=== PATIENT | female | born 1995 | race Caucasian/White ===

== ENCOUNTER 2017-03-03 14:13 | Inpatient (IN) | payer BC ==
[2017-03-03] MEDS ORDERED: Sodium Chloride 0.9% 10 ML Syringe FLUSH PRN (16:51)
[2017-03-03] MEDS ORDERED: Misoprostol 100 MCG Tab VAG PRN (16:51)
[2017-03-03] MEDS ORDERED: Nalbuphine 20 MG/1 ML Amp IVPUSH PRN (16:51)
[2017-03-03] MEDS ORDERED: Zolpidem 5 MG Tab PO PRN (16:51)
[2017-03-03] MEDS ORDERED: Ondansetron 4 MG/2 ML SDV IVPUSH PRN (16:51)
--- NOTE | 2017-03-03 16:55 | PCM.LDHP ---
L&D History of Present Illness - General Date of Service: 03/03/17 Admit Problem/Dx: Patient Status Order with Admit Dx/Problem 03/03/17 14:24 Patient Status [ADT] Routine 03/03/17 16:52 Patient Status [ADT] Routine Admission Diagnosis/Problem Admission Diagnosis/Problem Normal Source of Information: Patient History Limitations: Reports: No Limitations - History of Present Illness Introduction:: Patient is a 21 y/o at 38 4/7 wks who presents to L&D for serial BP's and labs. The last few clinic appointments has had BP's that have been high normal. States last night she had intermittent symptoms of blurred vision . Denies headaches or vision changes. Baby moving well. 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 Para: 0 Endocrine/Metabolic History: Reports: Obesity/BMI 30+ Social & Family History - Family History Family Medical History: Noncontributory - Tobacco Use Smoking Status *Q: Never Smoker - Alcohol Use Alcohol Use History: No - Recreational Drug Use Recreational Drug Use: No H&P Review of Systems - Review of Systems: Review Of Systems: See Below General: Reports: No Symptoms HEENT: Reports: Visual Changes Pulmonary: Reports: No Symptoms Cardiovascular: Reports: No Symptoms Gastrointestinal: Reports: No Symptoms Genitourinary: Reports: No Symptoms Musculoskeletal: Reports: No Symptoms Skin: Reports: No Symptoms Psychiatric: Reports: No Symptoms L&D Exam - Exam Exam: See Below - Vital Signs Vital Signs: Last Vital Signs Temp 37.1 C 03/03/17 14:30 Pulse 86 03/03/17 14:30 Resp 16 03/03/17 14:30 BP 138/88 03/03/17 14:30 Pulse Ox 98 03/03/17 14:30 Weight: 97.976 kg - OB Specific Contraction Intensity: Mild Movement: Active Heart Tones: Present Heart Tones per Min: 145 Heart Rate (FHR) Variability: Moderate (6-25 bmp) Presentation: Vertex - Blake Score Blake Score Cervix Position: Midposition Blake Score Consistency: Medium Blake Score Effacement: 0-30% Blake Score Dilation: Closed Blake Score Infant's Station: -3 Blake Score Total: 2 - Exam General: Alert, Oriented, Cooperative Lungs: Clear to Auscultation, Normal Respiratory Effort Cardiovascular: Regular Rate, Regular Rhythm GI/Abdominal Exam: Soft, Non-Tender Genitourinary: Normal external exam Extremities: Normal Inspection, Pedal Edema Skin: Warm, Dry, Intact - Patient Data Lab Results Last 24 hrs: Laboratory Results - last 24 hr 03/03/17 03/03/17 Range/Units 14:43 14:43 WBC 12.32 H (3.98-10.04) K/mm3 RBC 4.39 (3.98-5.22) M/mm3 Hgb 12.5 (11.2-15.7) gm/L Hct 38.3 (34.1-44.9) % MCV 87.2 (79.4-94.8) fl MCH 28.5 (25.6-32.2) pg MCHC 32.6 (32.2-35.5) g/dl RDW Std Deviation 45.1 (36.4-46.3) fL Plt Count 230 (182-369) K/mm3 MPV 11.1 (9.4-12.3) fl Creatinine 0.7 (0.55-1.02) mg/dL Est Cr Clr Drug Dosing 111.62 mL/min Estimated GFR (MDRD) > 60 (>60) mL/min AST 16 (15-37) U/L ALT 15 (14-59) U/L Result Diagrams: 03/03/17 14:43 03/03/17 14:43 - Problem List (1) 38 weeks gestation of SNOMED Code(s): 42544211 ICD Code: Z3A.38 - 38 WEEKS GESTATION OF Status: Acute Current Visit: Yes (2) Preeclampsia SNOMED Code(s): 166003267 ICD Code: O14.90 - UNSPECIFIED PRE-ECLAMPSIA, UNSPECIFIED TRIMESTER Status : Acute Current Visit: Yes Qualifiers: Trimester: third trimester Qualified Code(s): O14.93 - Unspecified pre- eclampsia, third trimester Problem List Initiated/Reviewed/Updated: Yes Orders Last 24hrs: Active Orders 24 hr Category Date Time Status Patient Status [ADT] Routine ADT 03/03/17 14:24 Active Patient Status [ADT] Routine ADT 03/03/17 16:52 Ordered Activity as Tolerated [RC] PFP Care 03/03/17 16:51 Ordered Communication Order [RC] ASDIRECTED Care 03/03/17 16:51 Ordered Communication Order [RC] ASDIRECTED Care 03/03/17 16:51 Ordered Communication Order [RC] ASDIRECTED Care 03/03/17 16:51 Ordered Communication Order [RC] ASDIRECTED Care 03/03/17 16:51 Ordered Heart Tones [RC] ASDIRECTED Care 03/03/17 16:51 Ordered Monitoring [RC] INTERMITTENT Care 03/03/17 16:51 Ordered Non Stress Test [RC] PER UNIT ROUTINE Care 03/03/17 14:24 Active Notify Provider [RC] ASDIRECTED Care 03/03/17 16:51 Ordered Notify Provider [RC] PFP Care 03/03/17 16:51 Ordered Notify Provider [RC] PRN Care 03/03/17 16:51 Ordered Peripheral IV Care [RC] . DIRECTED Care 03/03/17 16:51 Ordered Up ad Jennifer [RC] ASDIRECTED Care 03/03/17 16:52 Ordered Vaginal Exam [RC] ASDIRECTED Care 03/03/17 16:51 Ordered Vital Signs [RC] ASDIRECTED Care 03/03/17 16:51 Ordered Vital Signs [RC] PER UNIT ROUTINE Care 03/03/17 14:24 Active Vital Signs [RC] PER UNIT ROUTINE Care 03/03/17 16:51 Ordered Regular Diet [DIET] Diet 03/03/17 Dinner Ordered TYPE AND SCREEN [BBK] Routine Lab 03/03/17 16:51 Ordered UA W/O MICROSCOPIC [URIN] Routine Lab 03/03/17 16:51 Uncollected Lactated Ringers [Ringers, Lactated] 1,000 ml Med 03/03/17 17:00 Ordered IV ASDIRECTED Misoprostol [Cytotec] Med 03/03/17 16:51 Ordered 25 mcg VAG Q4H PRN Nalbuphine [Nubain] Med 03/03/17 16:51 Ordered 10 mg IVPUSH Q2H PRN Ondansetron [Zofran] Med 03/03/17 16:51 Ordered 4 mg IVPUSH Q4H PRN Oxytocin/Lactated Ringers [Pitocin in LR 10 Units/1,000 Med 03/03/17 17:00 Ordered ML] 10 unit in 1,000 ml IV .CONTINUOUS Sodium Chloride 0.9% [Saline Flush] Med 03/03/17 16:51 Ordered 10 ml FLUSH ASDIRECTED PRN Zolpidem [Ambien] Med 03/03/17 16:51 Ordered 5 mg PO BEDTIME PRN Electronic Heart Tones Ext w TOCO [WOMSER] Oth 03/03/17 16:51 Ordered Routine Electronic Heart Tones Internal [WOMSER] Per Unit Ot 03/03/17 16:51 Ordered Routine Peripheral IV Insertion Adult [OM.PC] Routine Ot 03/03/17 16:51 Ordered Resuscitation Status Routine Resus Stat 03/03/17 14:24 Ordered Assessment/Plan Comment:: 21 y/o at 38 4/7 wks presented for extended monitoring. Has had several mild range BP's. Normal labs. Will admit and start IOL for preeclampsia * Cytotec to start. * GBS negative, no need for antibiotics * Pain management per patient preference * Anticipate * MMR after delivery
[2017-03-03] MEDS ORDERED: Oxytocin/Lactated Ringers 10 UNIT/1,000 ML BAG IV SCH (17:00)
[2017-03-03] MEDS ORDERED: Misoprostol 25 MCG (1/4 of 100 MCG) Tab ONE ×2 (17:07→21:12)
[2017-03-04] MEDS ORDERED: Misoprostol 25 MCG (1/4 of 100 MCG) Tab ONE (01:04)
[2017-03-04] MEDS ORDERED: Oxytocin/Lactated Ringers 10 UNIT/1,000 ML BAG IV SCH (05:15)
[2017-03-04] MEDS: Lactated Ringers 1,000 ML IV SCH ×2 (05:25→07:45)
[2017-03-04] MEDS ORDERED: Ondansetron 4 MG/2 ML SDV IVPUSH PRN (06:31)
[2017-03-04] MEDS ORDERED: diphenhydrAMINE 50 MG/ML SDV IVPUSH PRN (06:31)
[2017-03-04] MEDS ORDERED: fentaNYL 100 MCG/2 ML SDV EPIDUR PRN (06:31)
[2017-03-04] MEDS ORDERED: ePHEDrine 50 MG/ML SDV IVPUSH PRN (06:31)
--- NOTE | 2017-03-04 06:35 | PCM.PREANE ---
Preanesthetic Assessment - Procedure Proposed Procedure: Labor Epidural - Anesthesia/Transfusion/Family Hx Anesthesia History: No Prior Anesthesia Family History of Anesthesia Reaction: No Transfusion History: No Prior Transfusion(s) - Review of Systems General: No Symptoms Pulmonary: No Symptoms Cardiovascular: No Symptoms Gastrointestinal: Other (GERD) Neurological: No Symptoms Other: Reports: None - Physical Assessment NPO Status Date: 03/04/17 NPO Status Time: 06:30 O2 Sat by Pulse Oximetry: 98 Respiratory Rate: 16 Vital Signs: Last Vital Signs Temp 37.1 C 03/03/17 14:30 Pulse 86 03/03/17 14:30 Resp 16 03/03/17 14:30 BP 138/88 03/03/17 14:30 Pulse Ox 98 03/03/17 14:30 Height: 1.63 m Weight: 97.976 kg ASA Class: 2 Mental Status: Alert & Oriented x3 Airway Class: Mallampati = 1 Dentition: Reports: Normal Dentition Thyro-Mental Finger Breadths: 3 Mouth Opening Finger Breadths: 3 ROM/Head Extension: Full Lungs: Clear to Auscultation, Normal Respiratory Effort Cardiovascular: Regular Rate, Regular Rhythm - Lab Values: Laboratory Last Values WBC 12.32 K/mm3 (3.98-10.04) H 03/03/17 14:43 RBC 4.39 M/mm3 (3.98-5.22) 03/03/17 14:43 Hgb 12.5 gm/L (11.2-15.7) 03/03/17 14:43 Hct 38.3 % (34.1-44.9) 03/03/17 14:43 MCV 87.2 fl (79.4-94.8) 03/03/17 14:43 MCH 28.5 pg (25.6-32.2) 03/03/17 14:43 MCHC 32.6 g/dl (32.2-35.5) 03/03/17 14:43 RDW Std Deviation 45.1 fL (36.4-46.3) 03/03/17 14:43 Plt Count 230 K/mm3 (182-369) 03/03/17 14:43 MPV 11.1 fl (9.4-12.3) 03/03/17 14:43 Creatinine 0.7 mg/dL (0.55-1.02) 03/03/17 14:43 Est Cr Clr Drug Dosing 111.62 mL/min 03/03/17 14:43 Estimated GFR (MDRD) > 60 mL/min (>60) 03/03/17 14:43 AST 16 U/L (15-37) 03/03/17 14:43 ALT 15 U/L (14-59) 03/03/17 14:43 Urine Color Yellow (Yellow) 03/03/17 18:42 Urine Appearance Cloudy (Clear) H 03/03/17 18:42 Urine pH 7.0 (5.0-8.0) 03/03/17 18:42 Ur Specific [place] > or = 1.030 (1.005-1.030) 03/03/17 18:42 Urine Protein 1+ (Negative) H 03/03/17 18:42 Urine Glucose (UA) Negative (Negative) 03/03/17 18:42 Urine Ketones 1+ (Negative) H 03/03/17 18:42 Urine Occult Blood Trace-lysed (Negative) H 03/03/17 18:42 Urine Nitrite Positive (Negative) H 03/03/17 18:42 Urine Bilirubin Negative (Negative) 03/03/17 18:42 Urine Urobilinogen 0.2 (0.2-1.0) 03/03/17 18:42 Ur Leukocyte Esterase Trace (Negative) H 03/03/17 18:42 Blood Type A POSITIVE 03/03/17 14:43 Gel Antibody Screen Negative 03/03/17 14:43 - Allergies Allergies/Adverse Reactions: Allergies Allergy/AdvReac Type Severity Reaction Status Date / Time No Known Allergies Allergy Verified 03/03/17 15:08 - Blood Blood Available: No Product(s) Available: None - Anesthesia Plan Pre-Op Medication Ordered: None - Acknowledgements Anesthesia Type Planned: Epidural Pt an Appropriate Candidate for the Planned Anesthesia: Yes Alternatives and Risks of Anesthesia Discussed w Pt/Guardian: Yes Pt/Guardian Understands and Agrees with Anesthesia Plan: Yes PreAnesthesia Questionnaire - Past Health History Medical/Surgical History: Denies 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: Endocrine/Metabolic History: Reports: Obesity/BMI 30+ - SUBSTANCE USE Smoking Status *Q: Never Smoker Second Hand Smoke Exposure: No Recreational Drug Use History: No - HOME MEDS Home Medications: Home Meds PNV95/Ferrous Fumarate/FA [ Tablet] 1 tab PO DAILY 03/03/17 [History] - CURRENT (IN HOUSE) MEDS Current Meds: Current Medications Lactated Ringer's (Ringers, Lactated) 1,000 mls @ 40 mls/hr IV ASDIRECTED RAFAEL Last Admin: 03/04/17 05:25 Dose: 999 mls/hr Oxytocin/Lactated Ringer's (Pitocin In Lr 10 Units/1,000 Ml) 10 unit in 1,000 mls @ 500 mls/hr IV .CONTINUOUS RAFAEL Oxytocin/Lactated Ringer's (Pitocin In Lr 10 Units/1,000 Ml) 10 unit in 1,000 mls @ 12 mls/hr IV TITRATE RAFAEL; 2 MUNITS/MIN PRN Reason: Protocol Last Titration: 03/04/17 06:00 Dose: 4 munits/min, 24 mls/hr Nalbuphine HCl (Nubain) 10 mg IVPUSH Q2H PRN PRN Reason: Pain (moderate 4-6) Ondansetron HCl (Zofran) 4 mg IVPUSH Q4H PRN PRN Reason: Nausea/Vomiting Sodium Chloride (Saline Flush) 10 ml FLUSH ASDIRECTED PRN PRN Reason: Keep Vein Open Zolpidem Tartrate (Ambien) 5 mg PO BEDTIME PRN PRN Reason: Insomnia Last Admin: 03/04/17 01:08 Dose: 5 mg Discontinued Medications Misoprostol (Cytotec) 25 mcg VAG Q4H PRN PRN Reason: cervical ripening Stop: 03/04/17 00:52 Last Admin: 03/04/17 01:09 Dose: 25 mcg Misoprostol (Cytotec) Confirm Administered Dose 25 mcg .ROUTE .STK-MED ONE Stop: 03/03/17 17:08 Last Admin: 03/03/17 17:12 Dose: 25 mcg Misoprostol (Cytotec) Confirm Administered Dose 25 mcg .ROUTE .STK-MED ONE Stop: 03/03/17 21:13 Last Admin: 03/03/17 21:57 Dose: Not Given Misoprostol (Cytotec) Confirm Administered Dose 25 mcg .ROUTE .STK-MED ONE Stop: 03/04/17 01:05 Last Admin: 03/04/17 03:28 Dose: Not Given
[2017-03-04] MEDS ORDERED: Bupivacaine/fentaNYL/NS 100 ML Bag EPIDUR SCH (06:45)
[2017-03-04] MEDS ORDERED: Bupivacaine 0.25% 10 ML SDV ONE (06:45)
--- NOTE | 2017-03-04 07:23 | PCM.PNLD ---
Labor Progress Note - VS & Meds Vital Signs: Last Vital Signs Temp 37.1 C 03/03/17 14:30 Pulse 86 03/03/17 14:30 Resp 16 03/04/17 06:35 BP 138/88 03/03/17 14:30 Pulse Ox 98 03/04/17 06:35 Active Medications: Current Medications Diphenhydramine HCl (Benadryl) 25 mg IVPUSH Q6H PRN PRN Reason: Pruritis Ephedrine Sulfate (Ephedrine Sulfate) 5 mg IVPUSH ASDIRECTED PRN PRN Reason: Hypotension Fentanyl (Sublimaze) 100 mcg EPIDUR Q3H PRN PRN Reason: Pain Last Admin: 03/04/17 07:03 Dose: 100 mcg Fentanyl/Bupivacaine HCl (Fentanyl/Bupivacaine/Ns 2 Mcg-0.125% 100 Ml) 100 ml EPIDUR ASDIRECTED RAFAEL Last Admin: 03/04/17 07:03 Dose: 100 ml Lactated Ringer's (Ringers, Lactated) 1,000 mls @ 40 mls/hr IV ASDIRECTED RAFAEL Last Admin: 03/04/17 05:25 Dose: 999 mls/hr Oxytocin/Lactated Ringer's (Pitocin In Lr 10 Units/1,000 Ml) 10 unit in 1,000 mls @ 500 mls/hr IV .CONTINUOUS RAFAEL Oxytocin/Lactated Ringer's (Pitocin In Lr 10 Units/1,000 Ml) 10 unit in 1,000 mls @ 12 mls/hr IV TITRATE RAFAEL; 2 MUNITS/MIN PRN Reason: Protocol Last Titration: 03/04/17 06:00 Dose: 4 munits/min, 24 mls/hr Nalbuphine HCl (Nubain) 10 mg IVPUSH Q2H PRN PRN Reason: Pain (moderate 4-6) Ondansetron HCl (Zofran) 4 mg IVPUSH Q4H PRN PRN Reason: Nausea/Vomiting Ondansetron HCl (Zofran) 4 mg IVPUSH ONETIME PRN PRN Reason: Nausea/Vomiting Sodium Chloride (Saline Flush) 10 ml FLUSH ASDIRECTED PRN PRN Reason: Keep Vein Open Zolpidem Tartrate (Ambien) 5 mg PO BEDTIME PRN PRN Reason: Insomnia Last Admin: 03/04/17 01:08 Dose: 5 mg Discontinued Medications Misoprostol (Cytotec) 25 mcg VAG Q4H PRN PRN Reason: cervical ripening Stop: 03/04/17 00:52 Last Admin: 03/04/17 01:09 Dose: 25 mcg Misoprostol (Cytotec) Confirm Administered Dose 25 mcg .ROUTE .STK-MED ONE Stop: 03/03/17 17:08 Last Admin: 03/03/17 17:12 Dose: 25 mcg Misoprostol (Cytotec) Confirm Administered Dose 25 mcg .ROUTE .STK-MED ONE Stop: 03/03/17 21:13 Last Admin: 03/03/17 21:57 Dose: Not Given Misoprostol (Cytotec) Confirm Administered Dose 25 mcg .ROUTE .STK-MED ONE Stop: 03/04/17 01:05 Last Admin: 03/04/17 03:28 Dose: Not Given - Uterine Contractions Uterine Monitoring Mode: External [place] Contraction Intensity: Moderate to Strong - Monitoring Monitor Mode: External Ultrasound Heart Rate (FHR) Baseline: 140 Heart Rate (FHR) Variability: Moderate (6-25 bmp) Accelerations: Present, 15x15 Decelerations: None Strip Review: Category I - Vaginal Exam Dilation (cm): 3 Effacement (Percent): 70 Station: -3 Cervical Position: Midposition - Labor Progress (Free Text) Labor Progress: Patient doing well. Received 3 doses of cytotec overnight and pitocin of 4; started at 0500. Currently comfortable with an epidural in place. BP's have been normal to mild range. Patient asymptomatic. Continue present management. AROM when head better applied
--- NOTE | 2017-03-04 10:10 | PCM.PNLD ---
Labor Progress Note - VS & Meds Vital Signs: Last Vital Signs Temp 37.1 C 03/03/17 14:30 Pulse 86 03/03/17 14:30 Resp 16 03/04/17 06:35 BP 138/88 03/03/17 14:30 Pulse Ox 98 03/04/17 06:35 Active Medications: Current Medications Diphenhydramine HCl (Benadryl) 25 mg IVPUSH Q6H PRN PRN Reason: Pruritis Ephedrine Sulfate (Ephedrine Sulfate) 5 mg IVPUSH ASDIRECTED PRN PRN Reason: Hypotension Fentanyl (Sublimaze) 100 mcg EPIDUR Q3H PRN PRN Reason: Pain Last Admin: 03/04/17 07:03 Dose: 100 mcg Fentanyl/Bupivacaine HCl (Fentanyl/Bupivacaine/Ns 2 Mcg-0.125% 100 Ml) 100 ml EPIDUR ASDIRECTED RAFAEL Last Admin: 03/04/17 07:03 Dose: 100 ml Lactated Ringer's (Ringers, Lactated) 1,000 mls @ 40 mls/hr IV ASDIRECTED RAFAEL Last Admin: 03/04/17 07:45 Dose: 150 mls/hr Oxytocin/Lactated Ringer's (Pitocin In Lr 10 Units/1,000 Ml) 10 unit in 1,000 mls @ 500 mls/hr IV .CONTINUOUS RAFAEL Oxytocin/Lactated Ringer's (Pitocin In Lr 10 Units/1,000 Ml) 10 unit in 1,000 mls @ 12 mls/hr IV TITRATE RAFAEL; 2 MUNITS/MIN PRN Reason: Protocol Last Titration: 03/04/17 08:38 Dose: 4 munits/min, 24 mls/hr Nalbuphine HCl (Nubain) 10 mg IVPUSH Q2H PRN PRN Reason: Pain (moderate 4-6) Ondansetron HCl (Zofran) 4 mg IVPUSH Q4H PRN PRN Reason: Nausea/Vomiting Ondansetron HCl (Zofran) 4 mg IVPUSH ONETIME PRN PRN Reason: Nausea/Vomiting Sodium Chloride (Saline Flush) 10 ml FLUSH ASDIRECTED PRN PRN Reason: Keep Vein Open Zolpidem Tartrate (Ambien) 5 mg PO BEDTIME PRN PRN Reason: Insomnia Last Admin: 03/04/17 01:08 Dose: 5 mg Discontinued Medications Misoprostol (Cytotec) 25 mcg VAG Q4H PRN PRN Reason: cervical ripening Stop: 03/04/17 00:52 Last Admin: 03/04/17 01:09 Dose: 25 mcg Misoprostol (Cytotec) Confirm Administered Dose 25 mcg .ROUTE .STK-MED ONE Stop: 03/03/17 17:08 Last Admin: 03/03/17 17:12 Dose: 25 mcg Misoprostol (Cytotec) Confirm Administered Dose 25 mcg .ROUTE .STK-MED ONE Stop: 03/03/17 21:13 Last Admin: 03/03/17 21:57 Dose: Not Given Misoprostol (Cytotec) Confirm Administered Dose 25 mcg .ROUTE .STK-MED ONE Stop: 03/04/17 01:05 Last Admin: 03/04/17 03:28 Dose: Not Given - Uterine Contractions Uterine Monitoring Mode: External [place] Contraction Intensity: Moderate to Strong - Monitoring Monitor Mode: External Ultrasound Heart Rate (FHR) Baseline: 140 Heart Rate (FHR) Variability: Moderate (6-25 bmp) Accelerations: Present, 15x15 Decelerations: Late Strip Review: Category II - Vaginal Exam Dilation (cm): 6-7 Effacement (Percent): 90 Station: -2 Cervical Position: Midposition - Labor Progress (Free Text) Labor Progress: Patient doing well. Had to have her epidural re-dosed. After than did have late decelerations. Nursing managed with fluid and position changes. Resolution occurred. I presented and found patient to be even more dilated. ROM performed. Continue to monitor closely
--- NOTE | 2017-03-04 12:05 | PCM.DEL ---
L & D Note - General Info Date of Service: 03/04/17 - Delivery Note Labor: Induced by Oxytocin Cervical Ripening Method: Misoprostil Delivery Outcome: Livebirth Delivery Method: Spontaneous Vaginal Delivery Infant Delivery Mode: Spontaneous Presentation: Right Occiput Anterior (LISA) Nuchal Cord: None Anesthesia Type: Epidural Amniotic Fluid Description: Clear Episiotomy Type: None Laceration: 2nd Degree, Sulcus (right side) Suture type: Vicryl Suture size: 2-0 Placenta: Intact, Spontaneous Cord: 3 Vessels Estimated Blood Loss: 300 Resuscitation Needed: Yes : Bulb Syringe, Stimulated, Warmed, [place] Used, Warmer Used Score 1 min: 8 Score 5 min: 9 Delivery Comments (Free Text/Narrative):: Patient found to be complete and began pushing. With maternal pushing effort head delivered from an LISA presentation. No nuchal cord present. With gentle downward traction the shoulders and body delivered. placed on maternal abdomen. Cord clamped and cut. Cord blood obtained. Placenta allowed time to separate and then spontaneously expelled. Inspection of the perineum showed a right sided suclus tear which was repaired with a 2-0 vicryl in the typical fashion - Patient Data Vitals - Most Recent: Last Vital Signs Temp 37.1 C 03/03/17 14:30 Pulse 86 03/03/17 14:30 Resp 16 03/04/17 06:35 BP 138/88 03/03/17 14:30 Pulse Ox 98 03/04/17 06:35 Weight - Most Recent: 97.976 kg I&O - Last 24 Hours: Intake & Output 03/03/17 03/04/17 03/04/17 22:59 06:59 14:59 Intake Total 120 Balance 120 Lab Results Last 24 Hours: Laboratory Results - last 24 hr 03/03/17 03/03/17 03/03/17 Range/Units 14:43 14:43 14:43 WBC 12.32 H (3.98-10.04) K/mm3 RBC 4.39 (3.98-5.22) M/mm3 Hgb 12.5 (11.2-15.7) gm/L Hct 38.3 (34.1-44.9) % MCV 87.2 (79.4-94.8) fl MCH 28.5 (25.6-32.2) pg MCHC 32.6 (32.2-35.5) g/dl RDW Std Deviation 45.1 (36.4-46.3) fL Plt Count 230 (182-369) K/mm3 MPV 11.1 (9.4-12.3) fl Creatinine 0.7 (0.55-1.02) mg/dL Est Cr Clr Drug Dosing 111.62 mL/min Estimated GFR (MDRD) > 60 (>60) mL/min AST 16 (15-37) U/L ALT 15 (14-59) U/L Urine Color (Yellow) Urine Appearance (Clear) Urine pH (5.0-8.0) Ur Specific [place] (1.005-1.030) Urine Protein (Negative) Urine Glucose (UA) (Negative) Urine Ketones (Negative) Urine Occult Blood (Negative) Urine Nitrite (Negative) Urine Bilirubin (Negative) Urine Urobilinogen (0.2-1.0) Ur Leukocyte Esterase (Negative) Blood Type A POSITIVE Gel Antibody Screen Negative 03/03/17 Range/Units 18:42 WBC (3.98-10.04) K/mm3 RBC (3.98-5.22) M/mm3 Hgb (11.2-15.7) gm/L Hct (34.1-44.9) % MCV (79.4-94.8) fl MCH (25.6-32.2) pg MCHC (32.2-35.5) g/dl RDW Std Deviation (36.4-46.3) fL Plt Count (182-369) K/mm3 MPV (9.4-12.3) fl Creatinine (0.55-1.02) mg/dL Est Cr Clr Drug Dosing mL/min Estimated GFR (MDRD) (>60) mL/min AST (15-37) U/L ALT (14-59) U/L Urine Color Yellow (Yellow) Urine Appearance Cloudy H (Clear) Urine pH 7.0 (5.0-8.0) Ur Specific [place] > or = 1.030 (1.005-1.030) Urine Protein 1+ H (Negative) Urine Glucose (UA) Negative (Negative) Urine Ketones 1+ H (Negative) Urine Occult Blood Trace-lysed H (Negative) Urine Nitrite Positive H (Negative) Urine Bilirubin Negative (Negative) Urine Urobilinogen 0.2 (0.2-1.0) Ur Leukocyte Esterase Trace H (Negative) Blood Type Gel Antibody Screen Med Orders - Current: Current Medications Diphenhydramine HCl (Benadryl) 25 mg IVPUSH Q6H PRN PRN Reason: Pruritis Ephedrine Sulfate (Ephedrine Sulfate) 5 mg IVPUSH ASDIRECTED PRN PRN Reason: Hypotension Fentanyl (Sublimaze) 100 mcg EPIDUR Q3H PRN PRN Reason: Pain Last Admin: 03/04/17 07:03 Dose: 100 mcg Fentanyl/Bupivacaine HCl (Fentanyl/Bupivacaine/Ns 2 Mcg-0.125% 100 Ml) 100 ml EPIDUR ASDIRECTED RAFAEL Last Admin: 03/04/17 07:03 Dose: 100 ml Lactated Ringer's (Ringers, Lactated) 1,000 mls @ 40 mls/hr IV ASDIRECTED RAFAEL Last Admin: 03/04/17 07:45 Dose: 150 mls/hr Oxytocin/Lactated Ringer's (Pitocin In Lr 10 Units/1,000 Ml) 10 unit in 1,000 mls @ 500 mls/hr IV .CONTINUOUS RAFAEL Oxytocin/Lactated Ringer's (Pitocin In Lr 10 Units/1,000 Ml) 10 unit in 1,000 mls @ 12 mls/hr IV TITRATE RAFAEL; 2 MUNITS/MIN PRN Reason: Protocol Last Titration: 03/04/17 08:38 Dose: 4 munits/min, 24 mls/hr Nalbuphine HCl (Nubain) 10 mg IVPUSH Q2H PRN PRN Reason: Pain (moderate 4-6) Ondansetron HCl (Zofran) 4 mg IVPUSH Q4H PRN PRN Reason: Nausea/Vomiting Ondansetron HCl (Zofran) 4 mg IVPUSH ONETIME PRN PRN Reason: Nausea/Vomiting Sodium Chloride (Saline Flush) 10 ml FLUSH ASDIRECTED PRN PRN Reason: Keep Vein Open Zolpidem Tartrate (Ambien) 5 mg PO BEDTIME PRN PRN Reason: Insomnia Last Admin: 03/04/17 01:08 Dose: 5 mg Discontinued Medications Misoprostol (Cytotec) 25 mcg VAG Q4H PRN PRN Reason: cervical ripening Stop: 03/04/17 00:52 Last Admin: 03/04/17 01:09 Dose: 25 mcg Misoprostol (Cytotec) Confirm Administered Dose 25 mcg .ROUTE .STK-MED ONE Stop: 03/03/17 17:08 Last Admin: 03/03/17 17:12 Dose: 25 mcg Misoprostol (Cytotec) Confirm Administered Dose 25 mcg .ROUTE .STK-MED ONE Stop: 03/03/17 21:13 Last Admin: 03/03/17 21:57 Dose: Not Given Misoprostol (Cytotec) Confirm Administered Dose 25 mcg .ROUTE .STK-MED ONE Stop: 03/04/17 01:05 Last Admin: 03/04/17 03:28 Dose: Not Given - Problem List & Annotations (1) 38 weeks gestation of SNOMED Code(s): 16149710 Code(s): Z3A.38 - 38 WEEKS GESTATION OF Status: Acute Current Visit: Yes (2) Preeclampsia SNOMED Code(s): 994925017 Code(s): O14.90 - UNSPECIFIED PRE-ECLAMPSIA, UNSPECIFIED TRIMESTER Status: Acute Current Visit: Yes Qualifiers: Trimester: third trimester Qualified Code(s): O14.93 - Unspecified pre- eclampsia, third trimester (3) Vaginal delivery SNOMED Code(s): 743884879 Code(s): O80 - ENCOUNTER FOR FULL-TERM UNCOMPLICATED DELIVERY Status: Acute Current Visit: Yes - Problem List Review Problem List Initiated/Reviewed/Updated: Yes - My Orders Last 24 Hours: My Active Orders 03/03/17 14:24 Patient Status [ADT] Routine Resuscitation Status Routine 03/03/17 14:43 PATIENT RETYPE [BBK] Routine TYPE AND SCREEN [BBK] Routine 03/03/17 16:51 Activity as Tolerated [RC] PFP Communication Order [RC] ASDIRECTED Communication Order [RC] ASDIRECTED Communication Order [RC] ASDIRECTED Monitoring [RC] INTERMITTENT Notify Provider [RC] ASDIRECTED Notify Provider [RC] PRN Peripheral IV Care [RC] . DIRECTED Nalbuphine [Nubain] 10 mg IVPUSH Q2H PRN Ondansetron [Zofran] 4 mg IVPUSH Q4H PRN Sodium Chloride 0.9% [Saline Flush] 10 ml FLUSH ASDIRECTED PRN Zolpidem [Ambien] 5 mg PO BEDTIME PRN Electronic Heart Tones Ext w TOCO [WOMSER] Routine Electronic Heart Tones Internal [WOMSER] Per Unit Routine Peripheral IV Insertion Adult [OM.PC] Routine 03/03/17 16:52 Patient Status [ADT] Routine Up ad Jennifer [RC] ASDIRECTED 03/03/17 17:00 Lactated Ringers [Ringers, Lactated] 1,000 ml IV ASDIRECTED Oxytocin/Lactated Ringers [Pitocin in LR 10 Units/1,000 ML] 10 unit in 1,000 ml IV .CONTINUOUS 03/03/17 Dinner Regular Diet [DIET] 03/04/17 05:15 Oxytocin/Lactated Ringers [Pitocin in LR 10 Units/1,000 ML] 10 unit in 1,000 ml IV TITRATE - Assessment Assessment:: 21 y/o G1 now P1001 PPD#0 from at 38 5/7 wks after IOL for preeclampsia - Plan Plan:: * Routine cares * Encourage breast feeding * Close monitoring of BP's. Will need BP check one week after delivery * Discharge home in 2 days * MMR after delivery
[2017-03-04] MEDS ORDERED: Acetaminophen 325 MG Tab PO PRN (12:28)
[2017-03-04] MEDS ORDERED: Docusate Sodium 100 MG Cap PO PRN (12:28)
[2017-03-04] MEDS ORDERED: Benzocaine/Menthol 20%-0.5% Spray 56 GM Canister TOP PRN (12:28)
[2017-03-04] MEDS ORDERED: Lanolin 100% Cream 7 GM Tube TOP PRN (12:28)
[2017-03-04] MEDS: Witch Hazel Medicated Pads 100/Jar TOP PRN (15:26)
[2017-03-04] MEDS: Ibuprofen 600 MG Tab PO PRN (17:54)
[2017-03-04] MEDS ORDERED: Measles, Mumps & Rubella Vaccine 0.5 ML SDV SUBCUT ONE (21:00)
[2017-03-05] MEDS: Ibuprofen 600 MG Tab PO PRN ×2 (05:07→18:16)
--- NOTE | 2017-03-05 07:02 | PCM.PNPP ---
- General Info Date of Service: 03/05/17 Functional Status: Reports: Pain Controlled, Tolerating Diet, Ambulating, Urinating - Review of Systems General: Reports: No Symptoms Pulmonary: Reports: No Symptoms Cardiovascular: Reports: No Symptoms Gastrointestinal: Reports: No Symptoms Genitourinary: Reports: No Symptoms Musculoskeletal: Reports: No Symptoms - Patient Data Vital Signs - Most Recent: Last Vital Signs Temp 36.8 C 03/05/17 03:47 Pulse 97 03/05/17 03:47 Resp 16 03/05/17 03:47 BP 122/73 03/05/17 03:47 Pulse Ox 98 03/05/17 03:47 Weight - Most Recent: 97.976 kg I&O - Last 24 Hours: Intake & Output 03/04/17 03/05/17 03/05/17 22:59 06:59 14:59 Intake Total 240 Balance 240 Lab Results - Last 24 Hours: Laboratory Results - last 24 hr 03/03/17 Range/Units 14:43 Blood Type A POSITIVE Gel Antibody Screen Negative Med Orders - Current: Current Medications Acetaminophen (Tylenol) 650 mg PO Q4H PRN PRN Reason: mild pain or fever Benzocaine/Menthol (Dermoplast Pain Relief [place]) 0 gm TOP ASDIRECTED PRN PRN Reason: Perineal Comfort Measure Last Admin: 03/04/17 15:26 Dose: 1 can Docusate Sodium (Colace) 100 mg PO BID PRN PRN Reason: Constipation Emollient Ointment (Lansinoh Hpa) 0 gm TOP ASDIRECTED PRN PRN Reason: Sore Nipples Ibuprofen (Motrin) 600 mg PO Q6H PRN PRN Reason: Mild pain or fever Last Admin: 03/05/17 05:07 Dose: 600 mg Witch Jayashree (Tucks) 1 pad TOP ASDIRECTED PRN PRN Reason: Hemorrhoid pain Last Admin: 03/04/17 15:26 Dose: 1 can Discontinued Medications Diphenhydramine HCl (Benadryl) 25 mg IVPUSH Q6H PRN PRN Reason: Pruritis Ephedrine Sulfate (Ephedrine Sulfate) 5 mg IVPUSH ASDIRECTED PRN PRN Reason: Hypotension Fentanyl (Sublimaze) 100 mcg EPIDUR Q3H PRN PRN Reason: Pain Last Admin: 03/04/17 07:03 Dose: 100 mcg Fentanyl/Bupivacaine HCl (Fentanyl/Bupivacaine/Ns 2 Mcg-0.125% 100 Ml) 100 ml EPIDUR ASDIRECTED RAFAEL Last Admin: 03/04/17 07:03 Dose: 100 ml Lactated Ringer's (Ringers, Lactated) 1,000 mls @ 40 mls/hr IV ASDIRECTED RAFAEL Last Admin: 03/04/17 07:45 Dose: 150 mls/hr Oxytocin/Lactated Ringer's (Pitocin In Lr 10 Units/1,000 Ml) 10 unit in 1,000 mls @ 500 mls/hr IV .CONTINUOUS RAFAEL Oxytocin/Lactated Ringer's (Pitocin In Lr 10 Units/1,000 Ml) 10 unit in 1,000 mls @ 12 mls/hr IV TITRATE RAFAEL; 2 MUNITS/MIN PRN Reason: Protocol Last Titration: 03/04/17 08:38 Dose: 4 munits/min, 24 mls/hr Measles/Mumps/Rubella Vaccine Live (M-M-R Ii Vaccine) 0.5 ml SUBCUT .ONCE ONE Stop: 03/04/17 21:01 Last Admin: 03/04/17 21:05 Dose: 0.5 ml Misoprostol (Cytotec) 25 mcg VAG Q4H PRN PRN Reason: cervical ripening Stop: 03/04/17 00:52 Last Admin: 03/04/17 01:09 Dose: 25 mcg Misoprostol (Cytotec) Confirm Administered Dose 25 mcg .ROUTE .STK-MED ONE Stop: 03/03/17 17:08 Last Admin: 03/03/17 17:12 Dose: 25 mcg Misoprostol (Cytotec) Confirm Administered Dose 25 mcg .ROUTE .STK-MED ONE Stop: 03/03/17 21:13 Last Admin: 03/03/17 21:57 Dose: Not Given Misoprostol (Cytotec) Confirm Administered Dose 25 mcg .ROUTE .STK-MED ONE Stop: 03/04/17 01:05 Last Admin: 03/04/17 03:28 Dose: Not Given Nalbuphine HCl (Nubain) 10 mg IVPUSH Q2H PRN PRN Reason: Pain (moderate 4-6) Ondansetron HCl (Zofran) 4 mg IVPUSH Q4H PRN PRN Reason: Nausea/Vomiting Ondansetron HCl (Zofran) 4 mg IVPUSH ONETIME PRN PRN Reason: Nausea/Vomiting Sodium Chloride (Saline Flush) 10 ml FLUSH ASDIRECTED PRN PRN Reason: Keep Vein Open Zolpidem Tartrate (Ambien) 5 mg PO BEDTIME PRN PRN Reason: Insomnia Last Admin: 03/04/17 01:08 Dose: 5 mg - Interaction Disposition, : in Room with Family Infant Interaction: Holding Infant Feeding: Attempted ; Nursed Fair/Poor Support Person: Significant Other - Recovery Exam Fundal Tone: Firm Fundal Level: At Umbilicus Fundal Placement: Midline Lochia Amount: Small Lochia Color: Rubra/Red Perineum Description: Edematous, Other (see below) Other Perinuem Description: 2' laceration with repair; tucks and dermoplast in use Episiotomy/Laceration: Approximated Bladder Status: Voiding Urinary Elimination: Voided - Exam General: Alert, Oriented, Cooperative GI/Abdominal Exam: Soft, Non-Tender Extremities: Normal Inspection, Pedal Edema Skin: Warm, Dry, Intact - Problem List & Annotations (1) 38 weeks gestation of SNOMED Code(s): 98242509 Code(s): Z3A.38 - 38 WEEKS GESTATION OF Status: Acute Current Visit: Yes (2) Preeclampsia SNOMED Code(s): 974529913 Code(s): O14.90 - UNSPECIFIED PRE-ECLAMPSIA, UNSPECIFIED TRIMESTER Status: Acute Current Visit: Yes Qualifiers: Trimester: third trimester Qualified Code(s): O14.93 - Unspecified pre- eclampsia, third trimester (3) Vaginal delivery SNOMED Code(s): 289477251 Code(s): O80 - ENCOUNTER FOR FULL-TERM UNCOMPLICATED DELIVERY Status: Acute Current Visit: Yes - Problem List Review Problem List Initiated/Reviewed/Updated: Yes - My Orders Last 24 Hours: My Active Orders 03/04/17 12:28 Activity as Tolerated [RC] PER UNIT ROUTINE Vital Signs [RC] Q4HR Acetaminophen [Tylenol] 650 mg PO Q4H PRN Benzocaine/Menthol [Dermoplast Pain Relief [place]] See Dose Instructions TOP ASDIRECTED PRN Docusate Sodium [Colace] 100 mg PO BID PRN Ibuprofen [Motrin] 600 mg PO Q6H PRN Lanolin [Lansinoh HPA] See Dose Instructions TOP ASDIRECTED PRN [place] [Tucks] 1 pad TOP ASDIRECTED PRN Assess Lochia [WOMSER] Per Unit Routine Assess Uterine Involution [WOMSER] Per Unit Routine Breast Pump [WOMSER] Per Unit Routine Heat Therapy [OM.PC] PRN Ice Therapy [OM.PC] Per Unit Routine Medication Administration Instruction [OM.PC] Routine Perineal Care [OM.PC] Per Unit Routine Peripheral IV Discontinue [OM.PC] Routine Sitz Bath [OM.PC] Per Unit Routine 03/04/17 Dinner Regular Diet [DIET] 03/05/17 12:28 Heat Therapy [OM.PC] PRN - Assessment Assessment:: 21 y/o G1 now P1001 PPD#1 from at 38 5/7 wks after IOL for preeclampsia - Plan Plan:: * Routine cares * Encourage breast feeding * BP's mostly normal to mild range. Patient asymptomatic. Continue to monitor closely * Discharge home in 1 day * MMR prior to discharge
--- NOTE | 2017-03-05 10:23 | PCM48HPAN ---
Post Anesthesia Note - EVALUATION WITHIN 48HRS OF ANESTHETIC Vital Signs in Normal Range: Yes Patient Participated in Evaluation: Yes Respiratory Function Stable: Yes Airway Patent: Yes Cardiovascular Function Stable: Yes Hydration Status Stable: Yes Pain Control Satisfactory: Yes Nausea and Vomiting Control Satisfactory: Yes Mental Status Recovered: Yes - COMMENTS/OBSERVATIONS Free Text/Narrative:: Patient denies any headaches, back pain, or residual numbness or tingling to LE.
[2017-03-05] MEDS: Witch Hazel Medicated Pads 100/Jar TOP PRN (20:34)
[2017-03-06] MEDS: Ibuprofen 600 MG Tab PO PRN (02:33)
--- NOTE | 2017-03-06 07:02 | PCM.PNPP ---
- General Info Date of Service: 03/06/17 Functional Status: Reports: Pain Controlled, Tolerating Diet, Ambulating, Urinating - Review of Systems General: Reports: No Symptoms Pulmonary: Reports: No Symptoms Cardiovascular: Reports: No Symptoms Gastrointestinal: Reports: No Symptoms Genitourinary: Reports: No Symptoms Musculoskeletal: Reports: No Symptoms Neurological: Reports: No Symptoms - Patient Data Vital Signs - Most Recent: Last Vital Signs Temp 36.6 C 03/06/17 03:07 Pulse 83 03/06/17 03:07 Resp 16 03/06/17 03:07 BP 139/91 H 03/06/17 03:07 Pulse Ox 97 03/06/17 03:07 Weight - Most Recent: 97.976 kg I&O - Last 24 Hours: Intake & Output 03/05/17 03/06/17 03/06/17 22:59 06:59 14:59 Intake Total 120 Balance 120 Med Orders - Current: Current Medications Acetaminophen (Tylenol) 650 mg PO Q4H PRN PRN Reason: mild pain or fever Benzocaine/Menthol (Dermoplast Pain Relief [place]) 0 gm TOP ASDIRECTED PRN PRN Reason: Perineal Comfort Measure Last Admin: 03/04/17 15:26 Dose: 1 can Docusate Sodium (Colace) 100 mg PO BID PRN PRN Reason: Constipation Last Admin: 03/06/17 02:31 Dose: 100 mg Emollient Ointment (Lansinoh Hpa) 0 gm TOP ASDIRECTED PRN PRN Reason: Sore Nipples Last Admin: 03/06/17 02:29 Dose: 1 tube Ibuprofen (Motrin) 600 mg PO Q6H PRN PRN Reason: Mild pain or fever Last Admin: 03/06/17 02:33 Dose: 600 mg Witch Jayashree (Tucks) 1 pad TOP ASDIRECTED PRN PRN Reason: Hemorrhoid pain Last Admin: 03/05/17 20:34 Dose: 1 can Discontinued Medications Bupivacaine HCl (Sensorcaine-Mpf 0.25%) 10 ml .ROUTE .STK-MED ONE Stop: 03/04/17 06:46 Diphenhydramine HCl (Benadryl) 25 mg IVPUSH Q6H PRN PRN Reason: Pruritis Ephedrine Sulfate (Ephedrine Sulfate) 5 mg IVPUSH ASDIRECTED PRN PRN Reason: Hypotension Fentanyl (Sublimaze) 100 mcg EPIDUR Q3H PRN PRN Reason: Pain Last Admin: 03/04/17 07:03 Dose: 100 mcg Fentanyl/Bupivacaine HCl (Fentanyl/Bupivacaine/Ns 2 Mcg-0.125% 100 Ml) 100 ml EPIDUR ASDIRECTED RAFAEL Last Admin: 03/04/17 07:03 Dose: 100 ml Lactated Ringer's (Ringers, Lactated) 1,000 mls @ 40 mls/hr IV ASDIRECTED RAFAEL Last Admin: 03/04/17 07:45 Dose: 150 mls/hr Oxytocin/Lactated Ringer's (Pitocin In Lr 10 Units/1,000 Ml) 10 unit in 1,000 mls @ 500 mls/hr IV .CONTINUOUS RAFAEL Oxytocin/Lactated Ringer's (Pitocin In Lr 10 Units/1,000 Ml) 10 unit in 1,000 mls @ 12 mls/hr IV TITRATE RAFAEL; 2 MUNITS/MIN PRN Reason: Protocol Last Titration: 03/04/17 08:38 Dose: 4 munits/min, 24 mls/hr Measles/Mumps/Rubella Vaccine Live (M-M-R Ii Vaccine) 0.5 ml SUBCUT .ONCE ONE Stop: 03/04/17 21:01 Last Admin: 03/04/17 21:05 Dose: 0.5 ml Misoprostol (Cytotec) 25 mcg VAG Q4H PRN PRN Reason: cervical ripening Stop: 03/04/17 00:52 Last Admin: 03/04/17 01:09 Dose: 25 mcg Misoprostol (Cytotec) Confirm Administered Dose 25 mcg .ROUTE .STK-MED ONE Stop: 03/03/17 17:08 Last Admin: 03/03/17 17:12 Dose: 25 mcg Misoprostol (Cytotec) Confirm Administered Dose 25 mcg .ROUTE .STK-MED ONE Stop: 03/03/17 21:13 Last Admin: 03/03/17 21:57 Dose: Not Given Misoprostol (Cytotec) Confirm Administered Dose 25 mcg .ROUTE .STK-MED ONE Stop: 03/04/17 01:05 Last Admin: 03/04/17 03:28 Dose: Not Given Nalbuphine HCl (Nubain) 10 mg IVPUSH Q2H PRN PRN Reason: Pain (moderate 4-6) Ondansetron HCl (Zofran) 4 mg IVPUSH Q4H PRN PRN Reason: Nausea/Vomiting Ondansetron HCl (Zofran) 4 mg IVPUSH ONETIME PRN PRN Reason: Nausea/Vomiting Sodium Chloride (Saline Flush) 10 ml FLUSH ASDIRECTED PRN PRN Reason: Keep Vein Open Zolpidem Tartrate (Ambien) 5 mg PO BEDTIME PRN PRN Reason: Insomnia Last Admin: 03/04/17 01:08 Dose: 5 mg - Interaction Infant Disposition, : in Room with Family Infant Interaction: Holding Infant Feeding: Attempted ; Nursed Fair/Poor Support Person: Significant Other - Recovery Exam Fundal Tone: Firm Fundal Level: 1 Fingerbreadths Below Umbilicus Fundal Placement: Midline Lochia Amount: Small Lochia Color: Rubra/Red Perineum Description: Other (see below) Other Perinuem Description: 2nd degree with repair Episiotomy/Laceration: None Bladder Status: Voiding Urinary Elimination: Voided - Exam General: Alert, Oriented, Cooperative GI/Abdominal Exam: Soft, Non-Tender Extremities: Normal Inspection, Pedal Edema Skin: Warm, Dry, Intact - Problem List & Annotations (1) 38 weeks gestation of SNOMED Code(s): 97543727 Code(s): Z3A.38 - 38 WEEKS GESTATION OF Status: Acute Current Visit: Yes (2) Preeclampsia SNOMED Code(s): 878512298 Code(s): O14.90 - UNSPECIFIED PRE-ECLAMPSIA, UNSPECIFIED TRIMESTER Status: Acute Current Visit: Yes Qualifiers: Trimester: third trimester Qualified Code(s): O14.93 - Unspecified pre- eclampsia, third trimester (3) Vaginal delivery SNOMED Code(s): 754575422 Code(s): O80 - ENCOUNTER FOR FULL-TERM UNCOMPLICATED DELIVERY Status: Acute Current Visit: Yes - Problem List Review Problem List Initiated/Reviewed/Updated: Yes - My Orders Last 24 Hours: My Active Orders 03/05/17 12:28 Heat Therapy [OM.PC] PRN - Assessment Assessment:: 21 y/o G1 now P1001 PPD#2 from at 38 5/7 wks after IOL for preeclampsia - Plan Plan:: * Routine cares * Encourage breast feeding * BP's mostly normal to mild range. Patient asymptomatic. Will follow up early next week in clinic for a BP check * Discharge home today * MMR prior to discharge
--- NOTE | 2017-03-06 07:03 | PCM.DCSUM1 ---
Discharge Summary - Discharge Data Discharge Date: 03/06/17 Discharge Disposition: Home, Self-Care 01 Condition: Good - Discharge Diagnosis/Problem(s) (1) 38 weeks gestation of SNOMED Code(s): 65788960 ICD Code: Z3A.38 - 38 WEEKS GESTATION OF Status: Acute Current Visit: Yes (2) Preeclampsia SNOMED Code(s): 038619142 ICD Code: O14.90 - UNSPECIFIED PRE-ECLAMPSIA, UNSPECIFIED TRIMESTER Status : Acute Current Visit: Yes Qualifiers: Trimester: third trimester Qualified Code(s): O14.93 - Unspecified pre- eclampsia, third trimester (3) Vaginal delivery SNOMED Code(s): 891224475 ICD Code: O80 - ENCOUNTER FOR FULL-TERM UNCOMPLICATED DELIVERY Status: Acute Current Visit: Yes - Patient Summary/Data Complications: None Consults: None Recommended Follow-up Testing/Procedures: Follow up in 1 week for BP check Hospital Course: Patient is a 21-year-old who presented from clinic for serial blood pressure monitoring at 38-4/7 weeks gestation. She was found to have intermittently elevated blood pressures and so was kept for induction of labor. This was started with Cytotec and then eventually moved on to Pitocin with rupture of membranes. She progressed well and underwent an uncomplicated vaginal delivery. See delivery note. her blood pressures remained mostly normal to mild range. She was otherwise asymptomatic and discharged home on day 2. Plans for follow-up within the week for blood pressure check in clinic. - Patient Instructions Diet: Regular Diet as Tolerated Activity: As Tolerated Activity, Other: Pelvic Rest for 6 weeks Driving: May Drive Today Showering/Bathing: May Shower Showering/Bathing, Other: May bathe Notify Provider of: Fever, Increased Pain, Swelling and Redness, Drainage, Nausea and/or Vomiting - Discharge Plan Home Medications: Home Meds PNV95/Ferrous Fumarate/FA [ Tablet] 1 tab PO DAILY 03/03/17 [History] Docusate Sodium [Colace] 100 mg PO BID PRN #0 cap 03/05/17 [Rx] Ibuprofen [IJD: Ibuprofen] 600 mg PO Q6H PRN #0 tablet 03/05/17 [Rx] Referrals: Alma Rosa Kuo MD [Primary Care Provider] - (1-2 weeks for BP check ) - Discharge Summary/Plan Comment DC Time >30 min.: No - Patient Data Vitals - Most Recent: Last Vital Signs Temp 36.6 C 03/06/17 03:07 Pulse 83 03/06/17 03:07 Resp 16 03/06/17 03:07 BP 139/91 H 03/06/17 03:07 Pulse Ox 97 03/06/17 03:07 Weight - Most Recent: 97.976 kg I&O - Last 24 hours: Intake & Output 03/05/17 03/06/17 03/06/17 22:59 06:59 14:59 Intake Total 120 Balance 120 Med Orders - Current: Current Medications Acetaminophen (Tylenol) 650 mg PO Q4H PRN PRN Reason: mild pain or fever Benzocaine/Menthol (Dermoplast Pain Relief [place]) 0 gm TOP ASDIRECTED PRN PRN Reason: Perineal Comfort Measure Last Admin: 03/04/17 15:26 Dose: 1 can Docusate Sodium (Colace) 100 mg PO BID PRN PRN Reason: Constipation Last Admin: 03/06/17 02:31 Dose: 100 mg Emollient Ointment (Lansinoh Hpa) 0 gm TOP ASDIRECTED PRN PRN Reason: Sore Nipples Last Admin: 03/06/17 02:29 Dose: 1 tube Ibuprofen (Motrin) 600 mg PO Q6H PRN PRN Reason: Mild pain or fever Last Admin: 03/06/17 02:33 Dose: 600 mg Witch Jayashree (Tucks) 1 pad TOP ASDIRECTED PRN PRN Reason: Hemorrhoid pain Last Admin: 03/05/17 20:34 Dose: 1 can Discontinued Medications Bupivacaine HCl (Sensorcaine-Mpf 0.25%) 10 ml .ROUTE .STK-MED ONE Stop: 03/04/17 06:46 Diphenhydramine HCl (Benadryl) 25 mg IVPUSH Q6H PRN PRN Reason: Pruritis Ephedrine Sulfate (Ephedrine Sulfate) 5 mg IVPUSH ASDIRECTED PRN PRN Reason: Hypotension Fentanyl (Sublimaze) 100 mcg EPIDUR Q3H PRN PRN Reason: Pain Last Admin: 03/04/17 07:03 Dose: 100 mcg Fentanyl/Bupivacaine HCl (Fentanyl/Bupivacaine/Ns 2 Mcg-0.125% 100 Ml) 100 ml EPIDUR ASDIRECTED RAFAEL Last Admin: 03/04/17 07:03 Dose: 100 ml Lactated Ringer's (Ringers, Lactated) 1,000 mls @ 40 mls/hr IV ASDIRECTED RAFAEL Last Admin: 03/04/17 07:45 Dose: 150 mls/hr Oxytocin/Lactated Ringer's (Pitocin In Lr 10 Units/1,000 Ml) 10 unit in 1,000 mls @ 500 mls/hr IV .CONTINUOUS RAFAEL Oxytocin/Lactated Ringer's (Pitocin In Lr 10 Units/1,000 Ml) 10 unit in 1,000 mls @ 12 mls/hr IV TITRATE RAFAEL; 2 MUNITS/MIN PRN Reason: Protocol Last Titration: 03/04/17 08:38 Dose: 4 munits/min, 24 mls/hr Measles/Mumps/Rubella Vaccine Live (M-M-R Ii Vaccine) 0.5 ml SUBCUT .ONCE ONE Stop: 03/04/17 21:01 Last Admin: 03/04/17 21:05 Dose: 0.5 ml Misoprostol (Cytotec) 25 mcg VAG Q4H PRN PRN Reason: cervical ripening Stop: 03/04/17 00:52 Last Admin: 03/04/17 01:09 Dose: 25 mcg Misoprostol (Cytotec) Confirm Administered Dose 25 mcg .ROUTE .STK-MED ONE Stop: 03/03/17 17:08 Last Admin: 03/03/17 17:12 Dose: 25 mcg Misoprostol (Cytotec) Confirm Administered Dose 25 mcg .ROUTE .STK-MED ONE Stop: 03/03/17 21:13 Last Admin: 03/03/17 21:57 Dose: Not Given Misoprostol (Cytotec) Confirm Administered Dose 25 mcg .ROUTE .STK-MED ONE Stop: 03/04/17 01:05 Last Admin: 03/04/17 03:28 Dose: Not Given Nalbuphine HCl (Nubain) 10 mg IVPUSH Q2H PRN PRN Reason: Pain (moderate 4-6) Ondansetron HCl (Zofran) 4 mg IVPUSH Q4H PRN PRN Reason: Nausea/Vomiting Ondansetron HCl (Zofran) 4 mg IVPUSH ONETIME PRN PRN Reason: Nausea/Vomiting Sodium Chloride (Saline Flush) 10 ml FLUSH ASDIRECTED PRN PRN Reason: Keep Vein Open Zolpidem Tartrate (Ambien) 5 mg PO BEDTIME PRN PRN Reason: Insomnia Last Admin: 03/04/17 01:08 Dose: 5 mg *Q Meaningful Use (DIS) - VTE *Q VTE Criteria *Q: - Stroke *Q Stroke Criteria *Q: - AMI *Q AMI Criteria *Q:
[2017-03-06] MEDS ORDERED: Measles, Mumps & Rubella Vaccine 0.5 ML SDV SUBCUT ONE (10:00)
[2017-03-06 10:27] VITALS: BP 148/80
== END 2017-03-06 12:20 | disposition home or self-care (01) | DRG 560 ==
LOC: JD.OBCHECK 14:13 → JD.OB 14:14 → JD.OBCHECK 17:41 → OBSVTOIN 03-04 11:39 → JD.OB 03-04 11:39
PROVIDERS: ADMIT Obstetrics & Gynecology; ATTEND Obstetrics & Gynecology
PROC: 10E0XZZ Delivery of Products of Conception, External Approach (ICD-10-PCS; principal; 2017-03-04)
PROC: 3E0P7GC Introduction of Other Therapeutic Substance into Female Reproductive, Via Natural or Artificial Opening (ICD-10-PCS; 2017-03-04)
PROC: 10907ZC Drainage of Amniotic Fluid, Therapeutic from Products of Conception, Via Natural or Artificial Opening (ICD-10-PCS; 2017-03-04)
PROC: 0KQM0ZZ Repair Perineum Muscle, Open Approach (ICD-10-PCS; 2017-03-04)
PROC: 00HU33Z Insertion of Infusion Device into Spinal Canal, Percutaneous Approach (ICD-10-PCS; 2017-03-04)
PROC: 3E0R3CZ (ICD-10-PCS; 2017-03-04)
PROC: 3E0234Z Introduction of Serum, Toxoid and Vaccine into Muscle, Percutaneous Approach (ICD-10-PCS; 2017-03-04)
DX: O14.94 Unspecified pre-eclampsia, complicating childbirth (principal); O70.1 Second degree perineal laceration during delivery; Z3A.39 39 weeks gestation of pregnancy; Z37.0 Single live birth; Z23 Encounter for immunization; O99.214 Obesity complicating childbirth
CPT/HCPCS: 01967; 36415; 81003; 82565; 84450; 84460; 85027; 86850; 86900; 86901; 90707; A9270-GY; J2590; J3010; J7120

== ENCOUNTER 2022-11-05 06:57 | Inpatient (IN) | payer BC ==
[~2022-11-05 06:57] MED LIST: Lidocaine 1% 10 ML MDV ONE
[2022-11-05] MEDS ORDERED: Sodium Chloride 0.9% 10 ML Syringe FLUSH PRN (07:06)
[2022-11-05] MEDS ORDERED: Acetaminophen 325 MG Tab PO PRN ×2 (07:06→22:44)
[2022-11-05] MEDS ORDERED: Nalbuphine 10 MG/0.5 ML Syringe IVPUSH PRN (07:06)
[2022-11-05] MEDS ORDERED: Ondansetron 4 MG/2 ML SDV IVPUSH PRN (07:06)
[2022-11-05] MEDS ORDERED: Oxytocin/Lactated Ringers 10 UNIT/1,000 ML BAG IV SCH (07:15)
[2022-11-05] MEDS: Lactated Ringers 1,000 ML IV SCH ×3 (07:48→19:24)
[2022-11-05] MEDS: Oxytocin/Lactated Ringers 10 UNIT/1,000 ML BAG IV SCH ×2 (07:48→22:36)
[2022-11-05] MEDS ORDERED: Sodium Chloride 0.9% 10 ML Syringe FLUSH SCH (09:00)
[2022-11-05] MEDS ORDERED: ePHEDrine 50 MG/ML SDV IVPUSH PRN (13:15)
[2022-11-05] MEDS ORDERED: diphenhydrAMINE 50 MG/ML SDV IVPUSH PRN (13:15)
[2022-11-05] MEDS ORDERED: fentaNYL 100 MCG/2 ML SDV EPIDUR PRN (13:15)
[2022-11-05] MEDS: Bupivacaine/fentaNYL/NS 100 ML Bag EPIDUR PRN ×2 (13:29→21:02)
[2022-11-05] MEDS ORDERED: Benzocaine/Menthol 20%-0.5% Spray 78 GM Cannister TOP PRN (22:44)
[2022-11-05] MEDS ORDERED: Docusate Sodium 100 MG Cap PO PRN (22:44)
[2022-11-06] MEDS: Witch Hazel Medicated Pads 40/Jar TOP PRN (00:06)
[2022-11-06] MEDS: Ibuprofen 600 MG Tab PO PRN ×3 (01:49→21:21)
[2022-11-07] MEDS: Ibuprofen 600 MG Tab PO PRN (06:10)
[2022-11-07] MEDS: Witch Hazel Medicated Pads 40/Jar TOP PRN (06:14)
[2022-11-07 09:36] VITALS: BP 122/77; PULSE 77
== END 2022-11-07 12:20 | disposition home or self-care (01) | DRG 560 ==
LOC: JD.OB 06:57 → UNDOADMOB 06:57 → JD.OB 22:18 → OBSVTOIN 22:18 → JD.OB 22:19
PROVIDERS: ADMIT Obstetrics & Gynecology; ATTEND Obstetrics & Gynecology
PROC: 10E0XZZ Delivery of Products of Conception, External Approach (ICD-10-PCS; principal; 2022-11-05)
PROC: 10907ZC Drainage of Amniotic Fluid, Therapeutic from Products of Conception, Via Natural or Artificial Opening (ICD-10-PCS; 2022-11-05)
PROC: 3E033VJ Introduction of Other Hormone into Peripheral Vein, Percutaneous Approach (ICD-10-PCS; 2022-11-05)
PROC: 10H07YZ Insertion of Other Device into Products of Conception, Via Natural or Artificial Opening (ICD-10-PCS; 2022-11-05)
PROC: 00HU33Z Insertion of Infusion Device into Spinal Canal, Percutaneous Approach (ICD-10-PCS; 2022-11-05)
PROC: 3E0R3BZ Introduction of Anesthetic Agent into Spinal Canal, Percutaneous Approach (ICD-10-PCS; 2022-11-05)
DX: O35.8XX0 Maternal care for other (suspected) fetal abnormality and damage, not applicable or unspecified (principal); O99.214 Obesity complicating childbirth; O69.81X0 Labor and delivery complicated by cord around neck, without compression, not applicable or unspecified; Z37.0 Single live birth; Z3A.39 39 weeks gestation of pregnancy
CPT/HCPCS: 01967; 36415; 51702; 59025; 59409; 85027; 86592; 86850; 86900; 86901; A9270-GY; J2590; J3010; J3490; J7120

== ENCOUNTER 2024-02-09 04:51 | Inpatient (IN) | payer MEDICAID ==
[2024-02-09] MEDS ORDERED: Sodium Chloride 0.9% 10 ML Syringe FLUSH PRN (19:51)
[2024-02-09] MEDS ORDERED: Lidocaine 1% 50 ML MDV INJECT PRN (19:51)
[2024-02-09] MEDS ORDERED: Nalbuphine 10 MG/ML Syringe IVPUSH PRN (19:51)
[2024-02-09] MEDS ORDERED: Glucagon,Human Recombinant 1 MG Vial IM PRN (19:51)
[2024-02-09] MEDS ORDERED: Ondansetron 4 MG/2 ML SDV IVPUSH PRN (19:51)
[2024-02-09 20:10] LABS: BASOPHILS PERCENT AUTO 0.2 % (0.0-1.0); EOSINOPHILS ABSOLUTE AUTO 0.2 K/mm3 (0.0-0.4); EOSINOPHILS PERCENT AUTO 2.1 % (0.0-6.0); HEMATOCRIT 37.2 % (37.0-47.0); LYMPHOCYTES ABSOLUTE AUTO 2.3 K/mm3 (1.0-4.8); LYMPHOCYTES PERCENT AUTO 22.8 % (24.0-44.0); MEAN CORPUSCULAR HEMOGLOBIN 26.5 pg (28.0-32.0); MEAN CORPUSCULAR HGB CONC 32.3 g/dl (32.0-36.0); MEAN CORPUSCULAR VOLUME 82.3 fl (83.0-99.0); MEAN PLATELET VOLUME 10.2 fl (9.4-12.3); MONOCYTES ABSOLUTE AUTO 0.8 K/mm3 (0.0-0.8); MONOCYTES PERCENT AUTO 8.1 % (0.0-8.0); NEUTROPHILS ABSOLUTE AUTO 6.6 K/mm3 (1.8-7.7); NEUTROPHILS PERCENT AUTO 65.8 % (41.0-71.0); PLATELET COUNT,PLT 212 K/mm3 (150-400); RED BLOOD CELL COUNT 4.52 M/mm3 (4.10-5.30); WHITE BLOOD CELL COUNT,WBC 10.03 K/mm3 (3.9-11.3)
[2024-02-09] MEDS: Insulin Glargine,Human Rec. Analog 100 Units/ML 3 ML Pen SUBCUT SCH (21:04)
[2024-02-09] MEDS: Lactated Ringers 1,000 ML IV SCH (21:06)
[2024-02-09] MEDS: Oxytocin/0.9 % Sodium Chloride 30 UNIT/500 ML BAG IV SCH (21:18)
[2024-02-09] MEDS: Sodium Chloride 0.9% 10 ML Syringe FLUSH SCH (23:34)
[2024-02-10] MEDS ORDERED: ePHEDrine 50 MG/ML SDV IVPUSH PRN (00:32)
[2024-02-10] MEDS ORDERED: diphenhydrAMINE 50 MG/ML SDV IVPUSH PRN (00:32)
[2024-02-10] MEDS: fentaNYL 100 MCG/2 ML SDV EPIDUR PRN (01:56)
[2024-02-10] MEDS: Bupivacaine/fentaNYL/NS 100 ML Bag EPIDUR PRN (01:57)
[2024-02-10] MEDS ORDERED: Sodium Chloride 0.9% 10 ML SDV ONE (04:00)
[2024-02-10] MEDS ORDERED: Bupivacaine 0.25% 10 ML SDV ONE (04:00)
[2024-02-10] MEDS: ceFAZolin 2 GM in Sodium Chloride 0.9% 50 ML IV ONE (06:00)
[2024-02-10] MEDS: Oxytocin/0.9 % Sodium Chloride 30 UNIT/500 ML BAG IV SCH (06:13)
[2024-02-10] MEDS ORDERED: Acetaminophen 325 MG Tab PO PRN (07:33)
[2024-02-10] MEDS: Benzocaine/Menthol 20%-0.5% Spray 78 GM Cannister TOP PRN (08:07)
[2024-02-10] MEDS: Witch Hazel Medicated Pads 40/Jar TOP PRN (08:07)
[2024-02-10] MEDS ORDERED: Docusate Sodium 100 MG Cap PO PRN (09:00)
[2024-02-10] MEDS: Ibuprofen 600 MG Tab PO SCH (09:22)
[2024-02-11 11:43] VITALS: BP 117/89; PULSE 73
== END 2024-02-11 13:50 | disposition home or self-care (01) | DRG 807 ==
LOC: JD.OB 04:51 → OBSVTOIN 02-10 04:51 → JD.OB 02-10 04:52
PROVIDERS: ADMIT Obstetrics & Gynecology; ATTEND Obstetrics & Gynecology
PROC: 10E0XZZ Delivery of Products of Conception, External Approach (ICD-10-PCS; principal; 2024-02-10)
PROC: 10907ZC Drainage of Amniotic Fluid, Therapeutic from Products of Conception, Via Natural or Artificial Opening (ICD-10-PCS; 2024-02-10)
PROC: 3E033VJ Introduction of Other Hormone into Peripheral Vein, Percutaneous Approach (ICD-10-PCS; 2024-02-10)
PROC: 3E0R3BZ Introduction of Anesthetic Agent into Spinal Canal, Percutaneous Approach (ICD-10-PCS; 2024-02-10)
PROC: 00HU33Z Insertion of Infusion Device into Spinal Canal, Percutaneous Approach (ICD-10-PCS; 2024-02-10)
DX: O24.424 Gestational diabetes mellitus in childbirth, insulin controlled (principal); Z37.0 Single live birth; O99.214 Obesity complicating childbirth; Z3A.37 37 weeks gestation of pregnancy; O73.0 Retained placenta without hemorrhage
CPT/HCPCS: 36415; 51702; 59025; 59409; 82947; 85025; 86592; 86850; 86900; 86901; A9270-GY; J0665; J0690; J1815-GY; J3010; J3490; J7120